=== PATIENT | female | born 1970 | race Caucasian/White ===

== ENCOUNTER 2021-11-06 14:39 | Outpatient (CLI) | payer BC | END 2021-11-06 14:40 | disposition home or self-care (01) | LOC: CSHMAMMO 14:39 | PROVIDERS: ATTEND Internal Medicine | DX: Z12.31 Encounter for screening mammogram for malignant neoplasm of breast (principal); Z91.89 Other specified personal risk factors, not elsewhere classified; Z98.82 Breast implant status | CPT/HCPCS: 77063; 77067 ==

== ENCOUNTER 2022-03-04 09:52 | Outpatient (CLI) | payer BC ==
[2022-03-04] MEDS ORDERED: Iopamidol 300 61% 100 ML VIAL FS ONE (13:44)
== END 2022-03-04 09:53 | disposition home or self-care (01) ==
LOC: CSHCT 09:52
PROVIDERS: ATTEND Internal Medicine Gastroenterology
DX: R10.9 Unspecified abdominal pain (principal); Z80.0 Family history of malignant neoplasm of digestive organs; K76.89 Other specified diseases of liver
CPT/HCPCS: 74177; Q9967

== ENCOUNTER 2023-09-29 07:38 | Outpatient (CLI) | payer BC | END 2023-09-29 07:39 | disposition home or self-care (01) | LOC: CSHCT 07:38 | PROVIDERS: ATTEND Internal Medicine Gastroenterology | DX: K76.89 Other specified diseases of liver (principal); R93.5 Abnormal findings on diagnostic imaging of other abdominal regions, including retroperitoneum | CPT/HCPCS: 74170 ==